=== PATIENT | female | born 1935 | race Caucasian/White ===

== ENCOUNTER → 2017-02-15 | Outpatient (CLI) | payer MEDICARE, OTHER ==
[~2017-02-15] MED LIST: AMLO10TA4 PO; ASPI81TA2 PO; CALC-747 PO; CALC65TA PO; ESTR42.5 TOP; LEVO50TA59 PO; LISI-621 PO; MUPI22OI2 TOP; OMEG1CAP29 PO; OMEP20CA10 PO; PRAV40TA PO
== END ==
LOC: WC.BC 08:56
DX: Z12.31 Encounter for screening mammogram for malignant neoplasm of breast (principal)
CPT/HCPCS: 77063; G0202